=== PATIENT | male | born 1930 | race Caucasian/White ===

== ENCOUNTER 2016-12-04 10:12 | Day surgery (SDC) | payer MEDICARE, BC ==
[2016-12-01 09:36] VITALS: BMI 24.2
[~2016-12-04 10:12] MED LIST: LACTATED RINGERS 1,000 ML IV SCH
[2016-12-04 11:58] VITALS: TEMP 96.7
[2016-12-04] MEDS ORDERED: LIDOCAINE 1% 20 ML VIAL (10MG/ML) FOR IV START INTRADERMA ONE (12:01)
[2016-12-04] MEDS ORDERED: LIDOCAINE 1% INJ 10MG/ML (20 ML MDV) ONE (13:21)
[2016-12-04] MEDS ORDERED: PROPOFOL 10 MG/ML 20 ML VIAL IV ONE (13:21)
[2016-12-04] MEDS ORDERED: IV FLUID CONTINUATION 1,000 ML IV ONE (13:44)
[2016-12-04 14:01] VITALS: BP 105/53; PULSE 73; RESP 18
--- NOTE | 2016-12-04 14:03 | P.PCN ---
Date of Procedure: 12/04/16 Preoperative Diagnosis: Postoperative Diagnosis: Procedure(s) Performed: Procedure: Esophagogastroduodenoscopy and biopsy. Preoperative diagnosis: Gastroesophageal reflux disease and retrosternal burning and recent treatment for thrush. Postoperative diagnosis: 1. Moderately sized hiatal hernia but no obvious esophagitis or complicated reflux disease. 2. No evidence of candidiasis or other infections in the esophagus. 3. Mild gastritis. Preparation and sedation: Was provided by anesthesia. Brief clinical history: The patient presented 56-year-old male who is referred for this evaluation for the above reasons. He is being treated for lymphatic leukemia and was recently treated for thrush. 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 The patient has chronic reflux symptoms. Never had an upper endoscopy in the past. This evaluation is to assess for infectious or inflammatory conditions of the esophagus or other pathology. Procedure: With the patient on his left lateral decubitus position and after informed consent and adequate sedation, I passed the Olympus-GIF 160 video upper endoscope through the cricopharyngeus down the esophagus. GE junction was around 36 cm from the incisors and there was a moderately sized hiatal hernia measuring around 3 or 4 cm. The esophagus did not show any obvious erosions or ulcers. There were no strictures or Pacheco's esophagus. There is no exudates or other pathology. I then advanced the endoscope into the stomach which was insufflated with air and inspected in detail including the retroflex view in the cardia. There was some mottling and erythema in the antrum but no ulcers or erosions. Pyloric channel, duodenal bulb, post bulbar area and descending duodenum did not show any obvious abnormalities. Because of his symptoms I obtained biopsies from the duodenum, antrum and esophagus then the endoscope was withdrawn. The patient tolerated the procedure well. Plan: The patient was reassured. Will await biopsy results and make further plans based on his course and biopsy results. Implants: Indications for Procedure: Operative Findings: Description of Procedure:
== END 2016-12-04 14:18 | disposition home or self-care (01) ==
LOC: ORWHC2ENDO 10:12
DX: K29.50 Unspecified chronic gastritis without bleeding (principal); K44.9 Diaphragmatic hernia without obstruction or gangrene; K21.9 Gastro-esophageal reflux disease without esophagitis; Z87.19 Personal history of other diseases of the digestive system; C91.90 Lymphoid leukemia, unspecified not having achieved remission; I25.10 Atherosclerotic heart disease of native coronary artery without angina pectoris; I10 Essential (primary) hypertension; Z79.899 Other long term (current) drug therapy; Z88.0 Allergy status to penicillin
CPT/HCPCS: 88305; 88342; 43239; J2001; J2704